=== PATIENT | female | born 1970 | race Asian ===

== ENCOUNTER → 2021-04-19 16:27 | Outpatient (BNVA) | payer OTHER, SELFPAY | PROVIDERS: Family Provider Family Medicine; Visit Provider Nurse Practitioner | DX: Z20.822 Contact with and (suspected) exposure to COVID-19 (principal) | CPT/HCPCS: 87635 ==

== ENCOUNTER 2021-04-25 13:00 | Outpatient (CLI) | payer OTHER, SELFPAY ==
[2021-04-25 13:08] VITALS: BP 112/79; PULSE 88; RESP 18; TEMP 36.9; O2SAT 97
[2021-04-25 13:43] VITALS: BP 100/69; PULSE 84; RESP 18; O2SAT 98
[2021-04-25 14:37] VITALS: BP 102/76; PULSE 84; RESP 18; TEMP 36.6; O2SAT 98
== END 2021-04-25 13:01 | disposition home or self-care (01) ==
LOC: OPS 13:02
PROVIDERS: Visit Provider Family Medicine
DX: U07.1 COVID-19 (principal)
CPT/HCPCS: 96365

== ENCOUNTER → 2022-11-16 11:42 | Outpatient (BNVA) | payer OTHER, SELFPAY | PROVIDERS: PCP Family Medicine; Visit Provider Family Medicine | DX: Z51.81 Encounter for therapeutic drug level monitoring (principal); Z13.220 Encounter for screening for lipoid disorders; N92.4 Excessive bleeding in the premenopausal period | CPT/HCPCS: 80053; 80061; 83001; 85025 ==

== ENCOUNTER 2022-12-06 06:59 | Outpatient (CLI) | payer OTHER, SELFPAY ==
--- NOTE | 2022-12-06 07:15 | US_ITS ---
WS: [id number] Pelvic ultrasound, 12/06/2022 Clinical Data: Postmenopausal bleeding Comparison: None. Findings: The uterus measures 5.0 cm x 3.5 cm x 3.1 cm. The endometrium is 1.0 cm. No intrauterine or abnormal intrauterine mass is seen. The left ovary was not identified. The right ovary measures 1.1 cm x 1.7 cm x 1.9 cm with with a cyst measuring 0.64 x 0.75 x 1.15 cm. There is no fluid in the cul-de-sac. US/US pelv w/transvag [id number] Impression: 1. Negative pelvic ultrasound. 2. Simple cyst in the right ovary.
== END 2022-12-06 07:00 | disposition home or self-care (01) ==
PROVIDERS: PCP Family Medicine; Visit Provider Family Medicine
DX: N95.0 Postmenopausal bleeding (principal); N83.291 Other ovarian cyst, right side
CPT/HCPCS: 76830; 76856

== ENCOUNTER → 2024-02-27 13:14 | Outpatient (BNVA) | payer OTHER, SELFPAY | PROVIDERS: PCP Family Medicine; Visit Provider Family Medicine | DX: Z51.81 Encounter for therapeutic drug level monitoring (principal); Z13.220 Encounter for screening for lipoid disorders; Z00.00 Encounter for general adult medical examination without abnormal findings; E55.9 Vitamin D deficiency, unspecified; R53.81 Other malaise; R53.83 Other fatigue; E53.8 Deficiency of other specified B group vitamins | CPT/HCPCS: 80053; 80061; 82306; 82607; 84439; 84443; 85025; 87624 ==

== ENCOUNTER → 2025-03-12 08:29 | Outpatient (BNVA) | payer OTHER, SELFPAY | PROVIDERS: PCP Family Medicine; Visit Provider Family Medicine | DX: Z51.81 Encounter for therapeutic drug level monitoring (principal); Z13.6 Encounter for screening for cardiovascular disorders; Z00.00 Encounter for general adult medical examination without abnormal findings; R53.81 Other malaise; R53.83 Other fatigue; E87.6 Hypokalemia | CPT/HCPCS: 80053; 80061; 82728; 83735; 85025 ==